=== PATIENT | female | born 1980 | race Hispanic/Latino ===

== ENCOUNTER 2016-06-07 00:07 | Emergency (ER) | payer MEDICAID ==
[2016-06-07 00:08] VITALS: BMI 23.4
[2016-06-07 00:28] VITALS: RESP 18
--- NOTE | 2016-06-07 01:10 | C.PDOC ---
History Of Present Illness Patient presents to the ER with a complaint of right sided chest wall pain after falling last week. Patient is requesting something for the pain. Denies LOC, weakness or other injury. - HPI Time Seen by Provider: 06/07/16 01:10 Chief Complaint (Nursing): Trauma History Per: Patient History/Exam Limitations: no limitations Onset/Duration Of Symptoms: Hrs Injury Occurred (Timing): Days Ago: (Last week) Location Of Injury: Right: Chest, Anterior: Chest Severity: Mild Pain Scale Rating Of: 3 Associated Symptoms: Other (No other associated symptoms) Recent travel outside of the [place]: No Additional History Per: Patient - Fall Fall:Prior To Injury: Other (Fell down steps) Past Medical History Reviewed: Historical Data, Nursing Documentation, Vital Signs Vital Signs: Last Vital Signs Temp 97.7 F 06/07/16 00:23 Pulse 66 06/07/16 00:23 Resp 18 06/07/16 00:23 BP 118/81 06/07/16 00:23 Pulse Ox 98 06/07/16 01:38 - Medical History PMH: Bipolar Disorder, Depression, Hypercholesterolemia Surgical History: (x3) - [facility] Procedures BILAT TUBAL DESTRUCT NEC (11/04/13) MONITORING NOS (11/04/13) GROUP PSYCHOTHERAPY (01/24/16) INDIVID PSYCHOTHERAP NEC (05/29/13) INDIVIDUAL PSYCHOTHERAPY, COGNITIVE-BEHAVIORAL (01/24/16) INDIVIDUAL PSYCHOTHERAPY, SUPPORTIVE (01/24/16) LOW CERVICAL (11/04/13) OTHER GROUP THERAPY (05/29/13) Family History: States: No Known Family Hx - Social History Hx Tobacco Use: Yes Hx Alcohol Use: No Hx Substance Use: No - Immunization History Hx Tetanus Toxoid Vaccination: No Hx Influenza Vaccination: No Hx Pneumococcal Vaccination: No Review Of Systems Cardiovascular: Positive for: Chest Pain (Right wall) Musculoskeletal: Negative for: Neck Pain, Back Pain Neurological: Negative for: Weakness Physical Exam - Physical Exam Appears: Well, Non-toxic Skin: Warm, Dry Oral Mucosa: Moist Chest: Symmetrical, Tenderness (Right wall) Cardiovascular: Rhythm Regular, No Murmur Respiratory: No Rales, No Rhonchi, No Wheezing Gastrointestinal/Abdominal: Soft, No Tenderness Neurological/Psych: Oriented x3 ED Course And Treatment O2 Sat by Pulse Oximetry: 98 Pulse Ox Interpretation: Normal - Radiology CXR: Interpreted by Me CXR Interpretation: No: Infiltrates, Fracture, Pnemothorax Progress Note: CXR and urinalysis ordered. Motrin PO administered. Reevaluation Time: 01:56 Reassessment Condition: Improved Disposition Counseled Patient/Family Regarding: Studies Performed, Diagnosis, Need For Followup - Disposition Referrals: Odin Simms MD [Staff Provider] - Disposition: HOME/ ROUTINE Disposition Time: 01:10 Condition: FAIR Prescriptions: Ibuprofen [Motrin] 600 mg PO TID PRN #15 tab PRN Reason: Pain, Moderate (4-7) Nitrofurantoin Macrocrystals [Macrobid] 1 cap PO BID #14 cap Instructions: Urinary Tract Infection in Women (DC), Contusion in Adults (DC) - Clinical Impression Clinical Impression: Chest wall contusion, UTI (urinary tract infection) - Scribe Statement The provider has reviewed the documentation as recorded by the Scribe Alfa Toure All medical record entries made by the Scribe were at my direction and personally dictated by me. I have reviewed the chart and agree that the record accurately reflects my personal performance of the history, physical exam, medical decision making, and the department course for this patient. I have also personally directed, reviewed, and agree with the discharge instructions and disposition.
[2016-06-07 01:47] LABS: RBC URINE 1525 /hpf (0-3); URINE BACTERIA MANY (<OCC); URINE BILIRUBIN NEGATIVE (NEGATIVE); URINE BLOOD 3+ (NEGATIVE); URINE COLOR Red (YELLOW); URINE GLUCOSE (UA) 1+ mg/dL (Normal); URINE KETONE TRACE mg/dL (NEGATIVE); URINE PROTEIN 2+ mg/dL (NEGATIVE); URINE UROBILINOGEN NORMAL mg/dL (0.2-1.0); WBC CLUMPS FEW /hpf; WBC URINE 155 /hpf (0-5)
[2016-06-07 01:49] LABS: URINE LEUKOCYTE ESTERASE 3+ Leu/uL (Negative)
[2016-06-07 02:01] VITALS: BP 120/76; PULSE 65; TEMP 98.2; O2SAT 100
--- NOTE | 2016-06-07 09:10 | RAD ---
HISTORY: fall COMPARISON: None available TECHNIQUE: Chest PA and lateral FINDINGS: LUNGS: No focal consolidation. Punctate right upper lobe and left lower lobe calcified granulomas. Please note that chest x-ray has limited sensitivity for the detection of pulmonary masses. PLEURA: No significant pleural effusion identified. No definite pneumothorax . CARDIOVASCULAR: The cardiomediastinal silhouette appears within normal limits of size. OSSEOUS STRUCTURES: No acute osseous abnormality identified. VISUALIZED UPPER ABDOMEN: Unremarkable. OTHER FINDINGS: None. IMPRESSION: No focal consolidation, significant pleural effusion, or definite pneumothorax identified.
== END 2016-06-07 02:04 | disposition home or self-care (01) ==
LOC: C.ER 00:07
DX: S20.211A Contusion of right front wall of thorax, initial encounter (principal); W10.9XXA Fall (on) (from) unspecified stairs and steps, initial encounter

== ENCOUNTER 2017-04-03 04:12 | Emergency (ER) | payer MEDICAID ==
[2017-04-03 04:13] VITALS: BMI 23.4
[2017-04-03 05:14] LABS: BASO # 0.1 K/uL (0.0-0.2); BASO % 0.6 % (0.0-2.0); EOS # 0.2 K/uL (0.0-0.7); EOS % 2.1 % (0.0-4.0); HEMOGLOBIN 12.4 g/dL (11.0-16.0); LYMPH # 1.6 K/uL (1.0-4.3); LYMPH % 15.3 % (20.0-40.0); MEAN CELL VOLUME 93.8 fL (81.0-99.0); MEAN CORPUSCULAR HEMOGLOBIN 32.1 pg (27.0-31.0); MEAN CORPUSCULAR HGB CONC 34.2 g/dL (33.0-37.0); MEAN PLATELET VOLUME 10.1 fL (7.2-11.7); MONO # 0.5 K/uL (0.0-0.8); MONO % 4.4 % (0.0-10.0); NEUT # 8.2 K/uL (1.8-7.0); NEUT % 77.6 % (50.0-75.0); RBC 3.87 Mil/uL (3.80-5.20); RED CELL DISTRIBUTION WIDTH 14.5 % (11.5-14.5); WHITE BLOOD COUNT 10.6 K/uL (4.8-10.8)
[2017-04-03 05:26] LABS: HCG,QUALITATIVE URINE NEGATIVE (NEGATIVE)
[2017-04-03 05:28] LABS: ALB/GLOB RATIO 1.5 (1.0-2.1); ALBUMIN 3.9 g/dL (3.5-5.0); ALT/SGPT 18 U/L (9-52); AST/SGOT 16 U/L (14-36); BLOOD UREA NITROGEN 15 mg/dL (7-17); CALCIUM 8.3 mg/dl (8.6-10.4); GFR AFRICAN-AMERICAN > 60; GFR NON-AFRICAN AMERICAN > 60
[2017-04-03 05:29] LABS: URINE BACTERIA RARE (<OCC); URINE BILIRUBIN NEGATIVE (NEGATIVE); URINE BLOOD 3+ (NEGATIVE); URINE CLARITY Turbid (Clear); URINE COLOR Yellow (YELLOW); URINE GLUCOSE (UA) NORMAL (Normal); URINE LEUKOCYTE ESTERASE TRACE Leu/uL (Negative); URINE NITRATE NEGATIVE (NEGATIVE); URINE PROTEIN 2+ mg/dL (NEGATIVE); URINE UROBILINOGEN NORMAL mg/dL (0.2-1.0)
[2017-04-03 05:40] LABS: BARBITURATES, UR NEGATIVE (NEGATIVE); BENZODIAZEPINES, UR NEGATIVE (NEGATIVE); OPIATES, UR NEGATIVE (NEGATIVE); PHENCYCLIDINE, UR NEGATIVE (NEGATIVE)
--- NOTE | 2017-04-03 06:24 | C.PDOC ---
History Of Present Illness Patient is a 36 y/o female, with a Hx of schizophrenia, depression, and anxiety , who presents to the ED with complaints of SI and homelessness. Patient normally takes ___ but ran out and has not taken medication for the last 1 week. Patient was reportedly found at the edge of a bridge in [place] when a passerby noticed and took patient to [facility] ED. Patient has been seen by Crisis and it not 1:1 observation. No other physical complaints at this time. Time Seen by Provider: 04/03/17 04:46 Chief Complaint (Nursing): Psychiatric Evaluation History Per: Patient History/Exam Limitations: no limitations Onset/Duration Of Symptoms: Mins Suicide/Self Injury Attempted (Context): Other (jumping off of a bridge) Associated Symptoms: Suicidal Thoughts, Suicidal Plan Past Medical History Reviewed: Historical Data, Nursing Documentation, Vital Signs Vital Signs: Last Vital Signs Temp 98.5 F 04/03/17 04:27 Pulse 80 04/03/17 04:27 Resp 14 04/03/17 04:27 BP 132/80 04/03/17 04:27 Pulse Ox 97 04/03/17 06:52 - Medical History PMH: Anxiety, Bipolar Disorder, Depression, Hypercholesterolemia, Schizophrenia Denies: Diabetes, Hepatitis, HIV, HTN, Chronic Kidney Disease, Seizures, Sexually Transmitted Disease Surgical History: (x3) - [facility] Procedures BILAT TUBAL DESTRUCT NEC (11/04/13) MONITORING NOS (11/04/13) GROUP PSYCHOTHERAPY (02/26/17) INDIVID PSYCHOTHERAP NEC (05/29/13) INDIVIDUAL PSYCHOTHERAPY, COGNITIVE-BEHAVIORAL (02/26/17) INDIVIDUAL PSYCHOTHERAPY, SUPPORTIVE (01/24/16) LOW CERVICAL (11/04/13) OTHER GROUP THERAPY (05/29/13) Family History: States: No Known Family Hx - Social History Hx Tobacco Use: Yes Hx Alcohol Use: Yes Hx Substance Use: No - Immunization History Hx Tetanus Toxoid Vaccination: No Hx Influenza Vaccination: No Hx Pneumococcal Vaccination: No Review Of Systems Constitutional: Negative for: Fever, Chills Cardiovascular: Negative for: Chest Pain Respiratory: Negative for: Shortness of Breath Psych: Positive for: Suicidal ideation (and plan) Physical Exam - Physical Exam Appears: Well, Non-toxic Skin: Normal Color, Warm, Dry Head: Atraumatic, Normacephalic Oral Mucosa: Moist Chest: Symmetrical Cardiovascular: Rhythm Regular, No Murmur Respiratory: Normal Breath Sounds, No Rales, No Rhonchi, No Wheezing ED Course And Treatment - Laboratory Results Result Diagrams: 04/03/17 05:08 04/03/17 05:08 ECG Interpretation: No Acute Changes Rate From EC O2 Sat by Pulse Oximetry: 97 - Radiology CXR: Interpreted by Me CXR Interpretation: Yes: No Acute Disease Progress Note: EKG and CXR ordered. Zyprexa administered. Patient has blood in Urine, but she is on her period now. Patient to stay in ED for further evaluation. Patient is medically cleared for Crisis evaluation and possible admission. Disposition - Disposition Disposition Time: 07:00 Condition: STABLE Forms: [facility] (Australian) - Clinical Impression Clinical Impression: Suicidal ideations - Scribe Statement The provider has reviewed the documentation as recorded by the Scribe Macie Gomez All medical record entries made by the Scribe were at my direction and personally dictated by me. I have reviewed the chart and agree that the record accurately reflects my personal performance of the history, physical exam, medical decision making, and the department course for this patient. I have also personally directed, reviewed, and agree with the discharge instructions and disposition. Physician Patient Turnover Patient Signed Over To: Jenny Moralez Handoff Comments: Crisis evaluationa nd dispo
--- NOTE | 2017-04-03 07:19 | RAD ---
Chest x-ray two views History: Suicidal ideation. Comparison: 06/07/2016 Findings: No focal infiltrate or effusion. Bibasilar breast and nipple shadows. Impression: No focal infiltrate or effusion.
[2017-04-03 08:29] VITALS: BP 98/63; PULSE 83; RESP 20; TEMP 98; O2SAT 98
== END 2017-04-03 08:40 | disposition home or self-care (01) ==
LOC: C.ER 04:12
DX: Z76.5 Malingerer [conscious simulation] (principal); R45.851 Suicidal ideations; Z59.0 Homelessness; E78.00 Pure hypercholesterolemia, unspecified; F20.9 Schizophrenia, unspecified; Z72.0 Tobacco use

== ENCOUNTER 2017-09-16 13:17 | Emergency (ER) | payer MEDICAID ==
[2017-09-16 13:18] VITALS: BMI 22.4
[2017-09-16 13:31] VITALS: BP 116/78; PULSE 78; TEMP 98.3; O2SAT 98
--- NOTE | 2017-09-16 13:55 | C.PDOC ---
History Of Present Illness 36 y/o female brought to ED by Police after she walked into police station asking her boyfriend to give her ring back. At the time there was no boyfriend and found to be hallucinating, brought to ED for further evaluation. At ED patient is AAOx3 and states she just got confused and has no physical complaints at this time. Time Seen by Provider: 09/16/17 13:24 Chief Complaint (Nursing): Medical Clearance History Per: Patient History/Exam Limitations: no limitations Onset/Duration Of Symptoms: Hrs Current Symptoms Are (Timing): Still Present Past Medical History Reviewed: Historical Data, Nursing Documentation, Vital Signs Vital Signs: Last Vital Signs Temp 98.3 F 09/16/17 13:25 Pulse 78 09/16/17 13:25 Resp 20 09/16/17 13:25 BP 116/78 09/16/17 13:25 Pulse Ox 98 09/16/17 13:54 - Medical History PMH: Anxiety, Bipolar Disorder, Depression, Hypercholesterolemia, Schizophrenia Surgical History: (x3) - [facility] Procedures BILAT TUBAL DESTRUCT NEC (11/04/13) MONITORING NOS (11/04/13) GROUP PSYCHOTHERAPY (07/14/17) INDIVID PSYCHOTHERAP NEC (05/29/13) INDIVIDUAL PSYCHOTHERAPY, COGNITIVE-BEHAVIORAL (02/26/17) INDIVIDUAL PSYCHOTHERAPY, SUPPORTIVE (07/14/17) LOW CERVICAL (11/04/13) OTHER GROUP THERAPY (05/29/13) Family History: States: No Known Family Hx - Social History Hx Tobacco Use: Yes Hx Alcohol Use: Yes Hx Substance Use: No - Immunization History Hx Tetanus Toxoid Vaccination: No Hx Influenza Vaccination: No Hx Pneumococcal Vaccination: No Review Of Systems Constitutional: Negative for: Fever, Chills Cardiovascular: Negative for: Chest Pain Respiratory: Negative for: Shortness of Breath Gastrointestinal: Negative for: Nausea, Vomiting Skin: Negative for: Rash Psych: Negative for: Suicidal ideation, Withdrawal Physical Exam - Physical Exam Appears: Non-toxic, No Acute Distress Skin: Warm, Dry, No Rash Head: Atraumatic, Normacephalic Eye(s): bilateral: Normal Inspection Oral Mucosa: Moist Neck: Supple Cardiovascular: Rhythm Regular Respiratory: Normal Breath Sounds, No Rales, No Rhonchi, No Wheezing Gastrointestinal/Abdominal: Soft, No Tenderness, No Guarding, No Rebound Extremity: Normal ROM, Capillary Refill (<2 seconds) Neurological/Psych: Oriented x3, Normal Speech, Normal Cognition ED Course And Treatment O2 Sat by Pulse Oximetry: 98 (RA) Pulse Ox Interpretation: Normal Medical Decision Making Medical Decision Making: Assessment; Hallucinations Progress: Resolved Patient medically cleared, evaluated by crisis and is cleared for discharge Disposition Counseled Patient/Family Regarding: Studies Performed, Diagnosis, Need For Followup - Disposition Referrals: [facility] [Outside] Disposition: HOME/ ROUTINE Disposition Time: 13:54 Condition: STABLE Additional Instructions: follow up with your doctor or medical clinic within 2 days call to make an appointment take medication as needed for pain return to ER if symptoms worsens or progress Instructions: Schizophrenia (DC) Forms: [facility] (Malay), General Discharge Instructions - Clinical Impression Clinical Impression: Hallucination - Scribe Statement The provider has reviewed the documentation as recorded by the Tuanibmarin Gilmore All medical record entries made by the Tuanibmarin were at my direction and personally dictated by me. I have reviewed the chart and agree that the record accurately reflects my personal performance of the history, physical exam, medical decision making, and the department course for this patient. I have also personally directed, reviewed, and agree with the discharge instructions and disposition.
[2017-09-16 14:24] VITALS: RESP 18
== END 2017-09-16 14:21 | disposition home or self-care (01) ==
LOC: C.ER 13:17
DX: R44.3 Hallucinations, unspecified (principal); E78.00 Pure hypercholesterolemia, unspecified; F20.9 Schizophrenia, unspecified; Z72.0 Tobacco use